=== PATIENT | male | born 1980 | race Caucasian/White ===

== ENCOUNTER 2017-02-20 10:36 | Emergency (ER) | payer OTHER ==
[~2017-02-20] VITALS: Ht 188 cm; Wt 99.8 kg
[~2017-02-20 10:36] MED LIST: ACETAMINOPHEN PO; AMOXICILLIN500 M1 PO; BACTRIM DS TABL1 TA1 PO; BENTYL20 M1 PO; BENZONATATE PO; CATAFLAM PO; CELEXA PO; CLEOCIN PO; CLINORIL200 M1 PO; DARVOCET-N 1001 TAB PO; DIAZEPAM PO; DICLOFENAC PO; EFFEXOR; ERYTHROMYCIN O3.5 GM OD; FAMOTIDINE PO; FLEXERIL PO; FLEXERIL10 MG PO; FLOMAX0.4 M1 DOB; IBUPROFEN; KEFLEX PO; KEFLEX500 MG PO; KEFLEX750 MG PO; KLONOPIN0.5 MG PO; LORTAB 10-3251 EACH PO; MEDROL DOSEPAK4 MG DOB; MEDROL PO; MILK OF MAGNESIA PO; MOTION SICKNESS25 M4 PO; MOTRIN100 MG PO; MOTRIN600 M1 PO; NAPROSYN500 MG PO; NAPROXEN PO; NO MEDICATIONS; PEN-VEE K PO; PERCOCET7.5 PO; PHENERGAN PO; PHENERGAN W/CO120 ML PO; PHENERGAN25 M1 DOB; PHENERGAN25 MG PO; PRED MILD5 ML OP; PREDNISOLONE SO10 ML OP; PREDNISONE PO; PRILOSEC; SENOKOT TO GO8.6 MG PO; SOLU-MEDROL1000 MG IM/IV; SOLU-MEDROL500 MG IM/IV; SYSTANE OP; TESSALON200 MG PO; TYLENOL #3; TYLOX1 CAP 5/50 PO; ULTRAM PO; VIBRAMYCIN100 M1 PO; VOLTAREN50 MG PO; VOLTAREN75 MG PO; ZANTAC150 MG PO; ZITHROMAX PO; ZOFRAN PO; ZOLOFT PO
[2017-02-20 11:25] LABS: URINE SOURCE CLEAN CATCH
[2017-02-20 11:29] LABS: URINE APPEARANCE CLEAR; URINE BILIRUBIN NEG (NEG); URINE BLOOD NEG (NEG); URINE COLOR YELLOW; URINE GLUCOSE NEG (NORM); URINE KETONE NEG (NEG); URINE LEUKOCYTE ESTERASE NEG (NEG); URINE NITRATE NEG (NEG); URINE PH 7.5 (5-8); URINE PROTEIN NEG (NEG); URINE SPECIFIC GRAVITY 1.015 (1.003-1.035); URINE UROBILINOGEN 0.2 MG/DL (NORM)
[2017-02-20 11:29] LABS: BASOPHIL% 0.4 % (0-2.5); DIFF IND NO; EOSINOPHIL# 0.2 X10e3 (0-0.7); EOSINOPHIL% 2.2 % (0.0-7.0); HEMATOCRIT 47.4 % (38.0-50.0); HEMOGLOBIN 16.1 gm/dL (13.0-16.0); LYMPHOCYTE# 2.7 X10e3 (1.0-3.5); LYMPHOCYTE% 32.2 % (17.0-45.0); MEAN CELL VOLUME 91.2 FL (83-96); MEAN PLATELET VOLUME 7.8 FL (6.5-11.5); MONOCYTE# 0.6 X10e3 (0-1.0); MONOCYTE% 7.5 % (3.0-12.0); NEUTROPHIL# 4.9 X10e3 (1.5-7.1); NEUTROPHIL% 57.7 % (40-75); PLATELET COUNT 287 X10e3 (140-420); RED BLOOD COUNT 5.19 X10e (3.90-5.60); RED CELL DISTRIBUTION WIDTH 14.2 % (11.0-15.5); WHITE BLOOD COUNT 8.5 X10e3 (4.0-10.5)
[2017-02-20 11:31] LABS: MICRO INDICATED? NO
[2017-02-20 11:49] LABS: BILIRUBIN, DIRECT 0.1 mg/dL (0.0-0.2); BILIRUBIN,INDIRECT 0.1 mg/dL (0.0-0.9); BILIRUBIN,TOTAL 0.2 mg/dL (0.2-2.0); CALCIUM SERUM 9.5 mg/dL (8.4-10.2); GLOM FILT RATE Estimated 96.4 mL/min (>60); POTASSIUM 4.2 mmol/L (3.5-5.1); PROTEIN TOTAL SERUM 7.3 g/dL (6.0-8.3)
== END 2017-02-20 12:40 | disposition home or self-care (01) ==
LOC: SED 10:36
PROVIDERS: Student in an Organized Health Care Education/Training Program
DX: K61.1 Rectal abscess (principal); R11.2 Nausea with vomiting, unspecified; R19.7 Diarrhea, unspecified; K21.9 Gastro-esophageal reflux disease without esophagitis; Z90.49 Acquired absence of other specified parts of digestive tract; F17.200 Nicotine dependence, unspecified, uncomplicated; Z88.5 Allergy status to narcotic agent; Z88.6 Allergy status to analgesic agent; Z91.040 Latex allergy status
CPT/HCPCS: 36415; 80048; 80076; 81003; 82150; 83690; 85025; 96361; 96374; 96375; 99284; C9113; J1885; J2405